=== PATIENT | male | born 1990 | race Two or more races ===

== ENCOUNTER 2024-03-26 07:31 | Emergency (ER) | payer OTHER ==
[2024-03-26 07:44] VITALS: BMI 29.9
[2024-03-26] MEDS ORDERED: ceFAZolin SODIUM 1 GM VIAL ONE (08:28)
[2024-03-26] MEDS ORDERED: ACETAMINOPHEN INJECTION 100 ML ONE (08:28)
[2024-03-26] MEDS ORDERED: DIPHTH,PERTUSS(ACELL),TET 0.5 ML DISP.SYRIN IM ONE (08:29)
[2024-03-26 08:32] LABS: VENOUS O2 SATURATION 38.8 % (70-80); VENOUS PCO2 53.5 mmHg (38-52); VENOUS PH 7.298 (7.310-7.410)
[2024-03-26] MEDS: DIPHTH,PERTUSS(ACELL),TET 0.5 ML DISP.SYRIN IM ONE (08:39)
[2024-03-26] MEDS: SODIUM CHLORIDE 0.9% 500 ML INFUS.BAG IV ONE ×2 (08:40→10:08)
[2024-03-26] MEDS: ACETAMINOPHEN 1000 MG/100 ML BAG IVPB ONE (08:40)
[2024-03-26 08:49] LABS: INR 1.07 (0.83-1.09); PROTHROMBIN TIME (PATIENT) 12.1 SEC (9.7-13.0)
[2024-03-26 08:50] LABS: BASO % 0.7 % (0-2.0); EOS % 0.7 % (0-4.5); HEMATOCRIT 52.5 % (35.4-49); HEMOGLOBIN 17.5 GM/dL (11.7-16.9); MCH 29.4 pg (25.7-33.7); MCHC 33.3 g/dl (32.0-35.9); MEAN CELL VOLUME 88.3 fl (80-96); MONO % 6.8 % (3.8-10.2); NEUT % 77.8 % (42.8-82.8); PLATELET COUNT 200 10^3/uL (134-434); RBC 5.95 M/mm3 (4.00-5.60); RDW 15.5 % (11.9-15.9); WHITE BLOOD COUNT 13.8 K/mm3 (4.0-10.0)
[2024-03-26 08:51] LABS: ACTIVATED PTT 26.3 SECONDS (25.2-36.5)
[2024-03-26 08:58] LABS: POTASSIUM 4.2 mmol/L (3.5-5.1)
[2024-03-26 09:00] LABS: CALCIUM 8.4 mg/dL (8.5-10.1)
[2024-03-26 09:01] VITALS: RESP 20
[2024-03-26 09:01] LABS: ALBUMIN 3.8 g/dl (3.4-5.0); BLOOD UREA NITROGEN 9.9 mg/dL (7-18)
[2024-03-26 09:04] LABS: CREATININE 1.3 mg/dL (0.55-1.3)
[2024-03-26 09:05] LABS: BILIRUBIN,TOTAL 1.1 mg/dL (0.2-1); TOT PROT 6.7 g/dl (6.4-8.2)
[2024-03-26] MEDS: CEFAZOLIN 1 GM in DEXTROSE 5%-WATER - 50 ML IVPB ONE (09:08)
[2024-03-26] MEDS ORDERED: fentaNYL CITRATE 250 MCG/5 ML VIAL ONE (09:30)
[2024-03-26 12:12] VITALS: BP 105/70; PULSE 77; TEMP 98.2
== END 2024-03-26 12:13 | disposition short-term general hospital (02) ==
LOC: JER 07:31
PROC: 3E03329 Introduction of Other Anti-infective into Peripheral Vein, Percutaneous Approach (ICD-10-PCS; principal; 2024-03-26)
PROC: 3E033NZ Introduction of Analgesics, Hypnotics, Sedatives into Peripheral Vein, Percutaneous Approach (ICD-10-PCS; 2024-03-26)
PROC: 3E033NZ Introduction of Analgesics, Hypnotics, Sedatives into Peripheral Vein, Percutaneous Approach (ICD-10-PCS; 2024-03-26)
PROC: 3E0234Z Introduction of Serum, Toxoid and Vaccine into Muscle, Percutaneous Approach (ICD-10-PCS; 2024-03-26)
DX: S31.111A Laceration without foreign body of abdominal wall, left upper quadrant without penetration into peritoneal cavity, initial encounter (principal); R42 Dizziness and giddiness; I95.9 Hypotension, unspecified; R61 Generalized hyperhidrosis; Z20.822 Contact with and (suspected) exposure to COVID-19; W26.0XXA Contact with knife, initial encounter; Z23 Encounter for immunization
CPT/HCPCS: 0241U-QW; 36415; 71045-TC-FY; 72170-TC-FY; 74177-TC; 80053; 82803; 85025; 85610; 85730; 86850; 86900; 86901; 90471; 90715; 93005; 93010; 96365; 96374; 96375; 99285-25; J0131; Q9967